=== PATIENT | female | born 2000 | race Two or more races ===

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

== ENCOUNTER 2022-07-05 22:01 | Emergency (ER) | payer OTHER ==
[~2022-07-05] VITALS: Ht 152.4 cm; Wt 57.6 kg
[~2022-07-05 22:01] MED LIST: SULFASALAZINE500 M1
== END 2022-07-06 00:12 | disposition home or self-care (01) ==
LOC: ER 22:01
DX: N39.0 Urinary tract infection, site not specified (principal)